=== PATIENT | male | born 1970 | race Caucasian/White ===

== ENCOUNTER 2018-02-05 11:43 | Emergency (ER) | payer BC ==
[~2018-02-05] VITALS: Ht 160 cm; Wt 68.2 kg
[2018-02-05 11:46] VITALS: TEMP 98.1
[2018-02-05 12:37] LABS: BASO % 0.4 % (0.0-2.0); EOS # 0.1 (0.0-0.7); EOS % 1.1 % (0-4.0); GRAN % 61.2 % (42.2-75.2); HEMATOCRIT 50.1 % (42.0-52.0); HEMOGLOBIN 17.4 g/dl (13.5-18.0); LYMPH # 2.9 (1.2-3.4); LYMPH % 29.9 % (20.0-51.0); MEAN CELL VOLUME 86 fl (80.0-100.0); MEAN CORPUSCULAR HEMOGLOBIN 30 pg (27.0-31.0); MEAN CORPUSCULAR HGB CONC 35 g/dl (33.0-37.0); MEAN PLATELET VOLUME 11.3 fl (7.4-10.4); MONO # 0.7 (0.1-0.6); MONO % 6.9 % (1.7-9.3); PLATELET COUNT 214 K/mm3 (130-400); RED BLOOD COUNT 5.86 M/mm3 (4.20-5.60); REDCELL DISTRIBUTION WIDTH-CV 13.6 % (11.5-14.5)
[2018-02-05 13:00] LABS: ALANINE AMINOTRANSFERASE 96 U/L (21-72); ALBUMIN 4.4 gm/dL (3.5-5.0); ALKALINE PHOSPHATASE 58 U/L (50-136); ANION GAP 13 mmol/L (7-16); AST,SGOT 54 U/L (15-37); BILIRUBIN,TOTAL 0.6 mg/dL (0.0-1.0); BLOOD UREA NITROGEN 11 mg/dL (9-20); CALCIUM 9.6 mg/dL (8.4-10.2); CARBON DIOXIDE 25 mmol/L (22-30); CHLORIDE 104 mmol/L (98-107); CREATININE, serum 0.71 mg/dL (0.66-1.25); GLUCOSE 95 mg/dL (74-106); SODIUM 141 mmol/L (137-145); TOTAL PROTEIN 7.9 gm/dL (6.4-8.2)
[2018-02-05 13:21] LABS: TROPONIN-I < 0.012 ng/mL (0.000-0.034)
[2018-02-05 15:17] VITALS: BP 114/71; PULSE 68
== END 2018-02-05 15:17 | disposition home or self-care (01) ==
LOC: COL.ER 11:43
PROVIDERS: Emergency Medicine
DX: R07.81 Pleurodynia (principal)
CPT/HCPCS: J1885

== ENCOUNTER 2022-01-18 23:42 | Emergency (ER) | payer SELFPAY ==
[~2022-01-18] VITALS: Ht 157.5 cm; Wt 54.5 kg
[~2022-01-18 23:42] MED LIST: LORTAB 5/500 501 TAB PO; NO HOME MEDICATIONS; PENICILLIN250 MG PO
[2022-01-18 23:50] VITALS: BP 147/86; TEMP 98.1
[2022-01-19] MEDS ORDERED: PREDNISONE20 MG PO (00:08)
[2022-01-19 00:17] VITALS: PULSE 67
== END 2022-01-19 00:18 | disposition home or self-care (01) ==
LOC: COL.ER 23:42
DX: L50.9 Urticaria, unspecified (principal)
CPT/HCPCS: J7512